=== PATIENT | male | born 1980 | race Caucasian/White ===

== ENCOUNTER 2022-05-16 13:52 | Emergency (ER) | payer BC ==
--- NOTE | 2022-05-16 14:52 | RAD REPORT ---
EXAM DESCRIPTION: CT - Head Brain Wo Cont - 05/16/2022 2:41 pm CLINICAL HISTORY: [facility] COMPARISON: No comparisons TECHNIQUE: All CT scans are performed using dose optimization technique as appropriate and may inclu de automated exposure control or mA/KV adjustment according to patient size. FINDINGS: No intracranial hemorrhage, hydrocephalus or extra-axial fluid collection.No areas of brai n edema or evidence of midline shift. Prior frontal and parietal craniotomy. Prior orbital floor repa ir. Probably remote left nasal bone fracture. 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 The paranasal sinuses and mastoids are clear. The calvarium is intact. IMPRESSION: No acute intracranial abnormality. Chronic changes as noted above.
[2022-05-16 15:20] LABS: Absolute Lymphocytes (CBC) 1.9 K/uL (0.7-4.9); Lymphocytes % 36.1 % (15.3-44.8); MCV 87.5 fL (80-100); MPV 8.9 fL (7.6-11.3); RBC Red Blood Cell Count 4.68 M/uL (4.33-5.43)
[2022-05-16 15:30] LABS: Potassium 3.4 mmol/L (3.5-5.1)
[2022-05-16] MEDS ORDERED: POTASSIUM CL SA 10 MEQ TAB PO ONE (15:42)
[2022-05-16 16:32] VITALS: TEMP 98.4; O2SAT 100
[2022-05-16 16:33] VITALS: BP 125/82
--- NOTE | 2022-05-29 16:27 | ER ---
Nurse's Notes [facility] Name: Joel Mata Age: 41 yrs Sex: Male : 1980 Arrival Date: 05/16/2022 Time: 13:56 Bed 5 Private MD: Shantanu Rodriguez Diagnosis: Gonzalez's palsy;Hypokalemia Presentation: 05/16 14:06 Chief complaint: Patient states: "I'm pretty sure I have [place] Palsy. My right eye wont mb9 close, right ear is sensitive to loud noises, my taste buds are gone, and numbness on my right lip that started 2 days ago. My numbness on lip is normal from trauma but it feel's different". Coronavirus screen: Vaccine status: Patient reports receiving the 2nd dose of the covid vaccine. Ebola Screen: No symptoms or risks identified at this time. Initial Sepsis Screen: Does the patient meet any 2 criteria? No. Patient's initial sepsis screen is negative. Does the patient have a suspected source of infection? No. Patient's initial sepsis screen is negative. Risk Assessment: Do you want to hurt yourself or someone else? Patient reports no desire to harm self or others. Onset of symptoms was May 16, 2022. 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 - Social history:: Smoking status: Patient denies any tobacco usage or history of. Screenin:11 [facility] ED Fall Risk Assessment (Adult) History of falling in the last 3 months, mb9 including since admission No falls in past 3 months (0 pts) Confusion or Disorientation No (0 pts) Intoxicated or Sedated No (0 pts) Impaired Gait No (0 pts) Mobility Assist Device Used No (0 pt) Altered Elimination No (0 pt) Score/Fall Risk Level 0 - 2 = Low Risk Oriented to surroundings, Maintained a safe environment, Educated pt \\T\\ family on fall prevention, incl call for assistance when getting out of bed. Abuse screen: Denies threats or abuse. Nutritional screening: No deficits noted. Tuberculosis screening: No symptoms or risk factors identified. Assessment: 15:38 Reassessment: Patient is alert, oriented x 3, equal unlabored respirations, skin aa5 warm/dry/pink. 16:10 Reassessment: Patient is alert, oriented x 3, equal unlabored respirations, skin aa5 warm/dry/pink. Vital Signs: 14:06 BP 156 / 104; Pulse 78; Resp 18; Temp 98.4; Pulse Ox 100% ; Weight 72.57 kg; Height 6 mb9 ft. 1 in. ; Pain 0/10; 15:37 BP 125 / 82; Pulse 63; Resp 16 S; Pulse Ox 100% ; aa5 14:06 Body Mass Index 21.11 (72.57 kg, 185.42 cm) mb9 14:06 Pain Scale: Adult mb9 ED Course: 13:56 Patient arrived in ED. mr 13:56 Shantanu Rodriguez DO is Private Physician. mr 13:57 Heena Traylor F[facility]-C is [facility]. snw 13:57 Sterling Steward MD is Attending Physician. snw 14:09 Triage completed. mb9 14:11 Arm band placed on. mb9 14:43 CT Head Brain wo Cont In Process Unspecified. EDMS 15:44 Shantanu Rodriguez DO is Referral Physician. snw 16:10 No provider procedures requiring assistance completed. IV discontinued, intact, aa5 bleeding controlled, No redness/swelling at site. Pressure dressing applied. Administered Medications: 15:40 Drug: Potassium Chloride PO 20 mEq Route: PO; aa5 16:00 Follow up: Response: No adverse reaction aa5 16:09 Not Given (Physician Discretion): predniSONE PO 20 mg PO once aa5 16:09 Not Given (Physician Discretion): Acyclovir PO 800 mg PO once aa5 16:09 Not Given (Physician Discretion): Famotidine PO 20 mg PO once aa5 Medication: 14:11 VIS not applicable for this client. mb9 Outcome: 15:44 Discharge ordered by . snw 16:10 Discharged to home ambulatory. aa5 16:10 Condition: stable 16:10 Discharge instructions given to patient, Instructed on discharge instructions, follow up and referral plans. medication usage, Demonstrated understanding of instructions, follow-up care, medications, Prescriptions given X 3. 16:11 Patient left the ED. aa5 Signatures: Dispatcher [employer] EDMS Traylor, Heena, STEEL FIXER-C STEEL FIXER-Csnw Jen Marquez CazaresBekah arredondo, RN RN aa5 Jen Perez RN RN mb9 Corrections: (The following items were deleted from the chart) 14:10 14:06 Acuity: KENIA 4 mb9 mb9 14:12 14:06 Chief complaint: Patient states: "I'm pretty sure I have [place] Palsy. My right mb9 eye wont close, right ear is sensitive to loud noises, my taste buds are gone, and numbness on my right lip that started 2 days ago. My numbness on lip is normal from trauma" mb9
--- NOTE | 2022-05-29 16:28 | EDPHYS ---
Physician Documentation [facility] Name: Joel Mata Age: 41 yrs Sex: Male : 1980 Arrival Date: 05/16/2022 Time: 13:56 Bed 5 Private MD: [facility] ED Physician Sterling Steward HPI: 05/16 14:21 This 41 yrs old Male presents to ER via Ambulatory with complaints of Eye Problem. snw 14:21 The patient is experiencing tearing, decreased eyelid function. Onset: The snw symptoms/episode began/occurred acutely. Duration: the symptoms are continuous. Aggravated by nothing. Alleviated by lubrication drops, patching. Associated signs and symptoms: Pertinent positives: hypersensitivity to right ear, unable to close right eye.. Patient does not utilize any form of vision correction. Severity of symptoms: At their worst the symptoms were moderate. It is unknown whether or not the patient has had similar symptoms in the past. recent intense dental cleaning. Pt's triage blood pressure noted at 156/104. 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 - Social history:: Smoking status: Patient denies any tobacco usage or history of. ROS: 14:19 Constitutional: Negative for fever, chills, and weight loss, Neck: Negative for injury, snw pain, and swelling, Cardiovascular: Negative for chest pain, palpitations, and edema, Respiratory: Negative for shortness of breath, cough, wheezing, and pleuritic chest pain, Abdomen/GI: Negative for abdominal pain, nausea, vomiting, diarrhea, and constipation, Back: Negative for injury and pain, : Negative for injury, bleeding, discharge, and swelling, MS/Extremity: Negative for injury and deformity, Skin: Negative for injury, rash, and discoloration, Psych: Negative for depression, anxiety, suicide ideation, homicidal ideation, and hallucinations. 14:19 Eyes: Positive for less movement to right face, loss of taste, hypersensitivity to right ear. 14:19 ENT: Positive for recent intense dental cleanings. Exam: 14:17 Constitutional: This is a well developed, well nourished patient who is awake, alert, snw and in no acute distress. Neck: Trachea midline, no thyromegaly or masses palpated, and no cervical lymphadenopathy. Supple, full range of motion without nuchal rigidity, or vertebral point tenderness. No Meningismus. Chest/axilla: Normal chest wall appearance and motion. Nontender with no deformity. No lesions are appreciated. Cardiovascular: Regular rate and rhythm with a normal S1 and S2. No gallops, murmurs, or rubs. Normal PMI, no JVD. No pulse deficits. Respiratory: Lungs have equal breath sounds bilaterally, clear to auscultation and percussion. No rales, rhonchi or wheezes noted. No increased work of breathing, no retractions or nasal flaring. Abdomen/GI: Soft, non-tender, with normal bowel sounds. No distension or tympany. No guarding or rebound. No evidence of tenderness throughout. Back: No spinal tenderness. No costovertebral tenderness. Full range of motion. Skin: Warm, dry with normal turgor. Normal color with no rashes, no lesions, and no evidence of cellulitis. MS/ Extremity: Pulses equal, no cyanosis. Neurovascular intact. Full, normal range of motion. Neuro: Awake and alert, GCS 15, oriented to person, place, time, and situation. Cranial nerves II-XII grossly intact. Motor strength 5/5 in all extremities. Sensory grossly intact. Cerebellar exam normal. Normal gait. Psych: Awake, alert, with orientation to person, place and time. Behavior, mood, and affect are within normal limits. 14:17 Head/face: Noted is partial paralysis of face but also has a chronic nerve paralysis, pt's right eye does not close, partial movement with smile presently, forehead with paralysis on right. Vital Signs: 14:06 BP 156 / 104; Pulse 78; Resp 18; Temp 98.4; Pulse Ox 100% ; Weight 72.57 kg; Height 6 mb9 ft. 1 in. ; Pain 0/10; 15:37 BP 125 / 82; Pulse 63; Resp 16 S; Pulse Ox 100% ; aa5 14:06 Body Mass Index 21.11 (72.57 kg, 185.42 cm) mb9 14:06 Pain Scale: Adult mb9 MDM: 14:06 Patient medically screened. snw 15:46 Differential diagnosis: Corneal abrasion of right eye. CVA, Gonzalez's Palsy. Data snw reviewed: vital signs, nurses notes. Counseling: I had a detailed discussion with the patient and/or guardian regarding: the historical points, exam findings, and any diagnostic results supporting the discharge/admit diagnosis, the presence of at least one elevated blood pressure reading (>120/80) during this emergency department visit, lab results, radiology results, the need for outpatient follow up, to return to the emergency department if symptoms worsen or persist or if there are any questions or concerns that arise at home. Special discussion: I have referred the patient to see his PCP for further evaluation of high blood pressure. Based on the history and exam findings, there is no indication for further emergent testing or inpatient evaluation. I discussed with the patient/guardian the need to see the primary care provider for further evaluation of the symptoms. 05/16 14:16 Order name: CBC with Diff; Complete Time: 15:22 snw 05/16 14:16 Order name: Blood Culture Adult (2) snw 05/16 14:16 Order name: Chem 7; Complete Time: 15:31 snw 05/16 14:16 Order name: CT Head Brain wo Cont; Complete Time: 14:58 snw 05/16 15:31 Order name: Recheck B/P; Complete Time: 15:34 snw Administered Medications: 15:40 Drug: Potassium Chloride PO 20 mEq Route: PO; aa5 16:00 Follow up: Response: No adverse reaction aa5 16:09 Not Given (Physician Discretion): predniSONE PO 20 mg PO once aa5 16:09 Not Given (Physician Discretion): Acyclovir PO 800 mg PO once aa5 16:09 Not Given (Physician Discretion): Famotidine PO 20 mg PO once aa5 Disposition: 18:31 Co-signature as Attending Physician, Sterling Steward MD I reviewed the patient's care rt provided by the Advanced Practice Provider and agree with the diagnosis and treatment plan. Disposition Summary: 05/16/22 15:44 Discharge Ordered Location: Home snw Condition: Stable snw Diagnosis - Gonzalez's palsy snw - Hypokalemia snw Followup: snw - With: Emergency Department - When: As needed - Reason: Worsening of condition Followup: snw - With: Shantanu Rodriguez, DO - When: 2 - 3 days - Reason: Recheck today's complaints, Continuance of care, Re-evaluation by your physician Discharge Instructions: - Discharge Summary Sheet snw - Gonzalez's Palsy, Adult snw - Potassium Content of Foods snw - Dry Eye snw - Hypokalemia snw Forms: - Medication Reconciliation Form snw - Thank You Letter snw - Antibiotic Education snw - Prescription Opioid Use snw Prescriptions: - Valtrex 500 mg Oral Tablet - take 1 tablet by ORAL route 3 times per day for 7 days; 21 tablet; Refills: 0, snw Product Selection Permitted - Prednisone 20 mg Oral Tablet - take 2 tablets by ORAL route once daily for 5 days; 10 tablet; Refills: 0, snw Product Selection Permitted - Pepcid 20 mg Oral Tablet - take 1 tablet by ORAL route once daily; 20 tablet; Refills: 0, Product snw Selection Permitted Signatures: Dispatcher [employer] EDMS Heena Traylor, COLLETER-C COLLETER-Csnw Bekah Cazares, RN RN aa5 Jen Perez RN RN mb9 Sterling Steward MD MD rt
== END 2022-05-16 16:11 | disposition home or self-care (01) ==
LOC: ER 13:52
DX: G51.0 Bell's palsy (principal); E87.6 Hypokalemia
CPT/HCPCS: 36415; 70450; 80048; 85025; 87040; 99283